=== PATIENT | female | born 1995 | race Two or more races ===

== ENCOUNTER 2023-01-03 13:32 | Emergency (ER) | payer OTHER ==
[~2023-01-03] VITALS: Ht 154.9 cm; Wt 73.5 kg
[2023-01-03 17:17] LABS: HEMATOCRIT 42.8 % (36.0-45.00); HEMOGLOBIN 14.3 g/dL (12.0-15.00); MEAN CELL VOLUME 94.7 fL (80.00-100.00); MEAN CORPUSCULAR HEMOGLOBIN 31.7 pg (27.00-32.0); MEAN CORPUSCULAR HGB CONC 33.5 g/dl (32.0-36.0); PLATELET COUNT 276 K/uL (150-450); RED BLOOD COUNT 4.52 M/uL (4.00-6.00); RED CELL DISTRIBUTION WIDTH 13.8 % (11.5-14.5)
[2023-01-03 17:33] LABS: URINE APPEARANCE Cloudy; URINE BILIRRUBIN Negative (NEGATIVE); URINE BLOOD Large; URINE COLOR Yellow; URINE LEUKOCYTE Negative; URINE NITRATE Negative; URINE PROTEIN 30 (NEGATIVE)
[2023-01-03 17:34] LABS: URINE BACTERIA 1907.5 uL (0.0-1933); URINE EPITHELIAL CELLS 31.2 uL (0.0-38.8); URINE RBC 477.5 uL (0.0-20.8); URINE WBC 5.4 uL (0.0-23.2)
[2023-01-03 17:36] LABS: PARTIAL THROMBOPLASTIN TIME 24.8 SECONDS (22.0-34.0); PROTHROMBIN TIME 10.5 SECONDS (9.0-11.5)
[2023-01-03 17:45] LABS: BILIRUBIN TOTAL 0.67 mg/dL (0.3-1.2); CALCIUM 9.3 mg/dL (8.5-10.1); CREATININE SERUM 0.76 mg/dL (0.55-1.02); GFR 91.99; GLOBULINA 4.2 G/DL (2.4-3.5); POTASSIUM 4.04 mEq/L (3.5-5.1); TOTAL PROTEIN 8.2 gm/dL (6.4-8.2)
[2023-01-03 17:46] LABS: URINE GLUCOSE 500 MG/DL (NEGATIVE)
== END 2023-01-03 20:35 | disposition home or self-care (01) ==
LOC: ER 13:32
PROVIDERS: General Practice
DX: O20.9 Hemorrhage in early pregnancy, unspecified (principal); Z3A.01 Less than 8 weeks gestation of pregnancy